=== PATIENT | male | born 1950 | race Caucasian/White ===

== ENCOUNTER 2019-03-09 06:19 | Day surgery (SDC) | payer MEDICARE ==
[~2019-03-09] VITALS: Ht 170.2 cm; Wt 75.1 kg
[~2019-03-09 06:19] MED LIST: ASPI325EC PO; GEMF600 PO; Glyburide5 MG PO; INSULANPEN SC; Janumet 50-1,01 EACH PO; LISI20 PO
[2019-03-09] MEDS ORDERED: Aspirin EC81 MG PO (07:07)
--- NOTE | 2019-03-09 07:18 | NUR ---
History, Chart, Medications and Allergies reviewed before start of procedure. Patient confirms NPO status and agrees with scheduled surgery. Lungs clear T/O to Auscultation. Patient states colon prep results clear. Pre-Op teaching done. Pt verbalizes understanding. Patient States Post-Procedure ride home has been arranged.
--- NOTE | 2019-03-09 07:59 | NUR ---
03/09/19 0759 Jaja Wiley PATIENT DETERMINED TO BE ASA APPROPRIATE FOR PROPOFOL SEDATION PRIOR TO START OF PROCEDURE BY DR. HENDRICKSON. 3-LEAD EKG REVIEWED WITH PHYSICIAN PRIOR TO START OF PROCEDURE. PATIENT CONFIRMS NPO STATUS AND AGREES WITH SCHEDULED PROCEDURE. History, Chart, Medications and Allergies reviewed before start of procedure. MONITOR INTACT WITH CONTINUOUS PULSE OXIMETRY AND INTERMITTENT BP. O2 VIA N/C INTACT THROUGHOUT SEDATION/PROCEDURE, 3L NC.
--- NOTE | 2019-03-09 08:46 | NUR ---
RECEIVED REPORT FROM ENDO RN (LM). PT HAS EYES OPEN, NO COMPLAINTS AT THIS TIME. VSS. AT BEDSIDE. PT SITTING UP.
--- NOTE | 2019-03-09 08:56 | NUR ---
PT SITTING UP AND DRINKING COFFEE
--- NOTE | 2019-03-09 09:10 | NUR ---
Discharge instructions reviewed with patient. Patient verbalizes understanding. Copy given to patient to take home. PT WANTED TO GET OOB AND SIT IN CHAIR. STATES NEEDS TO TAKE HIS HOME MEDS. BP INCREASED PT PLANS ON TAKING MEDS ONCE HOME. NO QUESTIONS OR CONCERNS WITH D/C HAS PAPERWORK. Patient States Post-Procedure ride home has been arranged. Discharged via wheelchair to private car for ride home.
== END 2019-03-09 23:16 | disposition home or self-care (01) ==
LOC: ORSCMMR 06:19 → ORD 08:00 → ORSCMMR 08:00
PROVIDERS: Internal Medicine Gastroenterology
PROC: 0DBL8ZX Excision of Transverse Colon, Via Natural or Artificial Opening Endoscopic, Diagnostic (ICD-10-PCS; principal; 2019-03-09 08:00)
PROC: 0DBN8ZX Excision of Sigmoid Colon, Via Natural or Artificial Opening Endoscopic, Diagnostic (ICD-10-PCS; principal; 2019-03-09 08:00)
PROC: 0DBK8ZX Excision of Ascending Colon, Via Natural or Artificial Opening Endoscopic, Diagnostic (ICD-10-PCS; principal; 2019-03-09 08:00)
DX: Z12.11 Encounter for screening for malignant neoplasm of colon (principal); D12.3 Benign neoplasm of transverse colon; D12.2 Benign neoplasm of ascending colon; D12.5 Benign neoplasm of sigmoid colon; K64.8 Other hemorrhoids; Z86.73 Personal history of transient ischemic attack (TIA), and cerebral infarction without residual deficits; E11.9 Type 2 diabetes mellitus without complications; I10 Essential (primary) hypertension; Z79.4 Long term (current) use of insulin; Z79.82 Long term (current) use of aspirin; Z79.899 Other long term (current) drug therapy
CPT/HCPCS: 82947; 88305; J2704; J7120

== ENCOUNTER 2020-02-11 06:08 | Day surgery (SDC) | payer MEDICARE, OTHER ==
[~2020-02-11] VITALS: Ht 167.6 cm; Wt 74.0 kg
[~2020-02-11 06:08] MED LIST changes: +Aspirin EC81 MG PO
--- NOTE | 2020-02-11 09:58 | NUR ---
PT RETURNED TO RECOVERY ROOM IN RECLINER. RIGHT RADIAL TR BAND SITE SOFT NON-TENDER WITH NO HEMATOMA AND NO PULSATILE BLEEDING. PT DENIES CP. PT EATING BREAKFAST WITH CALL LIGHT IN REACH.
[2020-02-11] MEDS ORDERED: CLOP75 PO (10:28)
--- NOTE | 2020-02-11 10:48 | NUR ---
NO CHANGES TO RIGHT RADIAL TR BAND SITE.
--- NOTE | 2020-02-11 12:08 | NUR ---
9 CC OF AIR REMOVED OVER 15 MIN OUT OF NOW DEFLATED RIGHT TR BAND - NOW HEMATOMA, NO PUSLATILE BLEEDING SOFT NON-TENDER. DISCHARGE INSTRUCTIONS REVIEWED ALL QUESTIONS ANSWERED.
--- NOTE | 2020-02-11 13:03 | NUR ---
DEFLATED RIGHT TR BAND REMOVED AND POLYMEM PLACED OVER RIGHT RADIAL SITE WITH WRIST BOARD IN PLACE. RIGHT RADIAL SITE NO CHANGES; SOFT NON-TENDER WITH NO HEMATOMA AND NO PULSATILE BLEEDING. 20 G IV DISCONTINUED FROM RIGHT AC WITH INTACT CANNULA. PT ESCORTED OUT VIA WHEELCHAIR ESCORT.
== END 2020-02-11 13:05 | disposition home or self-care (01) ==
LOC: MHTC 06:08
DX: E11.51 Type 2 diabetes mellitus with diabetic peripheral angiopathy without gangrene (principal); I70.213 Atherosclerosis of native arteries of extremities with intermittent claudication, bilateral legs; I25.10 Atherosclerotic heart disease of native coronary artery without angina pectoris; I10 Essential (primary) hypertension; E78.5 Hyperlipidemia, unspecified; Z88.5 Allergy status to narcotic agent; Z88.8 Allergy status to other drugs, medicaments and biological substances; Z86.73 Personal history of transient ischemic attack (TIA), and cerebral infarction without residual deficits
CPT/HCPCS: 36246; 75716; 75774; 76937; 82947; 85347; 99152; 99153; C1769; C1887; C1894; J1644; J2250; J3010; J7030; Q9967

== ENCOUNTER 2020-02-25 06:23 | Day surgery (SDC) | payer MEDICARE, OTHER ==
[~2020-02-25] VITALS: Ht 165.1 cm; Wt 73.0 kg
[~2020-02-25 06:23] MED LIST changes: +CLOP75 PO
--- NOTE | 2020-02-25 08:05 | NUR ---
Dr. Malone consenting patient in recovery room. Talking with patient regarding procedure.
--- NOTE | 2020-02-25 13:10 | NUR ---
PT ARRIVES TO RECOVERY AREA. APPEARS TO BE ALERT AND ORIENTED, ABLE TO FOLLOW COMMANDS. DENIES PAIN OR SOB. RIGHT FEMORAL ARTERIAL SHEATH IN PLACE. PT BP SLIGHTLY ELEVATED, WILL INFORM DR. FERRARI, AWAITING NEW ORDERS. PT TOLERATES PO FLUIDS WITH NO DIFFICULTIES.
--- NOTE | 2020-02-25 13:30 | NUR ---
RIGHT ARTERIAL FEMORAL SHEATH PULLED, MANUAL PRESSURE BEING HELD AT THIS TIME. WILL CONTINUE TO MONITOR SITE.
--- NOTE | 2020-02-25 14:18 | NUR ---
1418 ASSUMED CARE OF PATIENT FROM FIORDALIZA HERNANDEZ, SBAR GIVEN AND PATIENT LUNCH TRAY SET UP FOR PATIENT. LYING FLAT, S/P SHEATH PULL AND MANUAL PRESSURE TO THE RFA. NO COMPLAINTS OF PAIN, NO BLEEDING, NO HEMATOMA NOTED. VVS. MONITOR IN PLACE AND CALL LIGHT IN REACH.
--- NOTE | 2020-02-25 16:18 | NUR ---
HOB RAISED 45 DEGREES, RIGHT GROIN SITE STABLE, DRESSING C/D/I. PT C/O TENDERNESS TO SITE WITH PALPATION. PT MEDICATED WITH LABETOLOL 5 MG IV FOR SBP GREATER THAN 180 ORDERED. TOLERATES PO FOOD/FLUIDS WITH NO DIFFICULTIES. WILL CONTINUE TO MONITOR.
--- NOTE | 2020-02-25 16:42 | NUR ---
9605 PATIENT NIBP RESPONDED WELL TO LABETALOL 5 MG PIV. PATIENT RIGHT GROIN STABLE. VVS, CALL LIGHT IN REACH. URINATED PER URINAL.
--- NOTE | 2020-02-25 17:30 | NUR ---
9373 PATIENT AT THE BEDSIDE. REVIEWED DISCHARGE INSTRUCTIONS AND ALL QUESTIONS ANSWERED. PATIENT STOOD AT THE BEDSIDE AND AND PATIENT VIEWED THE RIGHT GROIN, NOTED THE DRESSING CLEAN AND DRY. GROIN FEELS FULL BUT SOFT AND TENDER BUT NO HEMATOMA NOTED. PIV REMOVED AND PRESSURE DRESSING APPLIED. NO CHANGES IN HOME MEDICATIONS. PATIENT ESCORTED TO THE WHEELCHAIR AND DISCHARGED TO PRIVATE VEHICLE WITH DAUGHTER DRIVING.
== END 2020-02-25 22:41 | disposition home or self-care (01) ==
LOC: MHTC 06:23
DX: I70.213 Atherosclerosis of native arteries of extremities with intermittent claudication, bilateral legs (principal); E11.51 Type 2 diabetes mellitus with diabetic peripheral angiopathy without gangrene; Z79.4 Long term (current) use of insulin; Z87.891 Personal history of nicotine dependence; Z88.5 Allergy status to narcotic agent; Z88.8 Allergy status to other drugs, medicaments and biological substances
CPT/HCPCS: 37220; 37222; 37224; 37252; 37253; 75716; 76937; 82947; 85347; 99152; 99153; C1725; C1753; C1757; C1769; C1887; C1894; J1644; J2250; J3010; J7030; J7040; Q9967

== ENCOUNTER 2020-03-24 06:15 | Day surgery (SDC) | payer MEDICARE, OTHER ==
[~2020-03-24] VITALS: Ht 165.1 cm; Wt 73.0 kg
--- NOTE | 2020-03-24 12:56 | NUR ---
PT RETURNED TO RECOVERY ROOM IN BED. RIGHT FEMORAL GROIN SITE WITH 6 FR SHEATH SECURED IN PLACE. LEFT PEDAL SITES STABLE WITH INTACT DRESSINGS; NO HEMATOMA, NO BLEEDING TO EITHER RIGHT FEMORAL SHEATH SITE OR LEFT PEDAL SITES. PT DENIES CHEST PAIN. CALL LIGHT IN REACH. FULL REPORT PROVIDED FIORDALIZA GREGORIO TO ASSUME CARE OF PT IN RECOVERY ROOM. RIGHT DP PULSE DOPPLER.
--- NOTE | 2020-03-24 13:19 | NUR ---
ASSUMED CARE OF PT. R GROIN SITE STABLE WITH SHEATH LEFT IN PLACE. PEDAL SITES WITH DRESSING, NO BLEEDING.
[2020-03-24] MEDS ORDERED: Aspir 8181 MG PO (13:23)
--- NOTE | 2020-03-24 14:53 | NUR ---
MANUAL PRESSURE HELD FOR 30 MIN TO OBTAIN HEMOSTASIS TO RIGHT FEMORAL GROIN SITE. RIGHT FEMORAL GROIN SITE SOFT NON-TENDER WITH NO HEMATOMA AND NO PULSATILE BLEEDING. PT DENIES RIGHT GROIN OR BACK PAIN. RIGHT FEMORAL GROIN SITE STABLE WITH GERMAINE AND TEGADERM DRESSING IN PLACE.
--- NOTE | 2020-03-24 17:31 | NUR ---
PT UP AMBULATORY, DOES C/O PAIN IN LEFT FOOT/ANKLE AREA. R GROIN SITE WITHOUT HEMATOMA, BLEEDING, OR SWELLING. PT GETTING DRESSED AT THIS TIME WITH ASSISTANCE FROM .
--- NOTE | 2020-03-24 17:42 | NUR ---
DISCHARGE GONE OVER WITH PT AND , BOTH VERBALIZE UNDERSTANDING OF INSTRUCTIONS. GROIN SITE REMAINS STABLE. PT TO PRIVATE VEHICLE PER W/C WITH ASSIST OF ONE STAFF.
== END 2020-03-24 22:33 | disposition home or self-care (01) ==
LOC: MHTC 06:15
DX: E11.51 Type 2 diabetes mellitus with diabetic peripheral angiopathy without gangrene (principal); I70.213 Atherosclerosis of native arteries of extremities with intermittent claudication, bilateral legs; F17.200 Nicotine dependence, unspecified, uncomplicated; Z79.4 Long term (current) use of insulin; Z88.5 Allergy status to narcotic agent; Z88.8 Allergy status to other drugs, medicaments and biological substances
CPT/HCPCS: 37252; 75716; 75774; 76937; 82947; 85347; 99152; 99153; C1725; C1753; C1757; C1769; C1887; C1894; C2623; C9764; J1644; J2250; J3010; J7030; Q9967

== ENCOUNTER → 2021-09-26 | Outpatient (CLI) | payer MEDICARE, OTHER ==
[~2021-09-26] MED LIST changes: +Aspir 8181 MG PO
[2021-09-26 19:47] LABS: Creatinine, Urine Random 93.9 mg/dL (27.00-270.00)
[2021-09-26 19:49] LABS: Microalb/Creat Ratio UR, Rand 674.121 mg/g (0.000-30.000)
== END | disposition home or self-care (01) ==
LOC: LAB SHORT 13:25
PROVIDERS: Family Medicine
DX: E11.21 Type 2 diabetes mellitus with diabetic nephropathy (principal)
CPT/HCPCS: 82043; 82570